=== PATIENT | female | born 1990 | race African-American/Black ===

== ENCOUNTER → 2016-05-26 | Outpatient (CLI) | payer OTHER, SELFPAY ==
[2016-05-26 15:08] LABS: CHLORIDE,CL 106 mmol/L (98-110); SODIUM,NA 136 mmol/L (136-146)
== END ==
LOC: MW.CHOBGYN 14:23
PROVIDERS: ATTEND Nurse Practitioner Women's Health
DX: Z21 Asymptomatic human immunodeficiency virus [HIV] infection status (principal)
CPT/HCPCS: 36415; 80053; 87536

== ENCOUNTER → 2016-05-26 | Outpatient (CLI) | payer OTHER, SELFPAY | LOC: MW.LAB 14:33 | PROVIDERS: ATTEND Internal Medicine Infectious Disease | DX: Z21 Asymptomatic human immunodeficiency virus [HIV] infection status (principal) | CPT/HCPCS: 85025 ==

== ENCOUNTER → 2016-05-31 | Outpatient (CLI) | payer OTHER, SELFPAY | LOC: MW.CHOBGYN 12:34 | PROVIDERS: ATTEND Nurse Practitioner Women's Health | DX: Z21 Asymptomatic human immunodeficiency virus [HIV] infection status (principal) | CPT/HCPCS: 36415; 86361 ==

== ENCOUNTER → 2016-05-31 | Outpatient (CLI) | payer OTHER, SELFPAY | LOC: MW.CHOBGYN 12:32 | PROVIDERS: ATTEND Advanced Practice Midwife | DX: Z34.90 Encounter for supervision of normal pregnancy, unspecified, unspecified trimester (principal) | CPT/HCPCS: 36415; 82950; 85025; 86850 ==

== ENCOUNTER → 2016-06-15 | Outpatient (CLI) | payer OTHER, SELFPAY ==
[2016-06-15 12:50] LABS: CHLORIDE,CL 109 mmol/L (98-110); SODIUM,NA 136 mmol/L (136-146)
== END ==
LOC: MW.CHOBGYN 11:36
PROVIDERS: ATTEND Advanced Practice Midwife
DX: Z21 Asymptomatic human immunodeficiency virus [HIV] infection status (principal)
CPT/HCPCS: 36415; 80053; 85025; 86361; 86480; 86644; 86645; 86777; 86778; 87536

== ENCOUNTER → 2016-07-18 | Outpatient (CLI) | payer OTHER, SELFPAY | END | disposition home or self-care (01) | LOC: MW.CHOBGYN 13:57 | PROVIDERS: ATTEND Advanced Practice Midwife | DX: Z34.90 Encounter for supervision of normal pregnancy, unspecified, unspecified trimester (principal) | CPT/HCPCS: 87081 ==

== ENCOUNTER → 2016-07-19 | Outpatient (CLI) | payer OTHER, SELFPAY ==
[2016-07-19 16:27] LABS: CHLORIDE,CL 109 mmol/L (98-110); SODIUM,NA 137 mmol/L (136-146)
== END | disposition home or self-care (01) ==
LOC: MW.LAB 15:12
PROVIDERS: ATTEND Internal Medicine Infectious Disease
DX: O98.719 Human immunodeficiency virus [HIV] disease complicating pregnancy, unspecified trimester (principal)
CPT/HCPCS: 36415; 80053; 85025; 86361; 87536

== ENCOUNTER 2016-08-04 02:11 | Inpatient (IN) | payer MEDICAID ==
[2016-08-04] MEDS ORDERED: Nalbuphine 10 MG/1 ML Vial IVPUSH PRN (02:35)
[2016-08-04] MEDS ORDERED: Water For Irrigation,Sterile 1,000 ML Container IRR PRN (02:35)
[2016-08-04] MEDS ORDERED: Misoprostol 200 MCG Tab PO PRN (02:35)
[2016-08-04] MEDS ORDERED: Sodium Chloride 0.9% 2.5 ML Syringe FLUSH PRN (02:35)
[2016-08-04] MEDS ORDERED: Lidocaine 1% 50 ML MDV INJECT PRN (02:35)
[2016-08-04] MEDS ORDERED: Butorphanol 1 MG/ML SDV IVPUSH PRN (02:35)
[2016-08-04] MEDS ORDERED: Carboprost Tromethamine 250 MCG/1 ML Amp IM PRN (02:35)
[2016-08-04] MEDS ORDERED: Sodium Chloride 0.9% 10 ML Syringe FLUSH PRN (02:35)
[2016-08-04] MEDS ORDERED: Methylergonovine 0.2 MG/1 ML Amp IM PRN (02:35)
[2016-08-04] MEDS ORDERED: Oxytocin/Lactated Ringers 30 UNIT/500 ML BAG IV SCH (02:45)
[2016-08-04] MEDS ORDERED: Lactated Ringers 1,000 ML IV SCH (02:45)
[2016-08-04] MEDS ORDERED: Benzocaine/Menthol 20%-0.5% Spray 78 GM Cannister TOP PRN (03:45)
[2016-08-04] MEDS ORDERED: Ibuprofen 400 MG Tab PO PRN (03:45)
[2016-08-04] MEDS ORDERED: oxyCODONE 5 MG Tab PO PRN (03:45)
[2016-08-04] MEDS ORDERED: Acetaminophen 500 MG Tab PO PRN ×2 (03:45)
[2016-08-04] MEDS ORDERED: Docusate Sodium 100 MG Cap PO PRN (03:45)
[2016-08-04] MEDS ORDERED: Bisacodyl 10 MG Supp RECTAL PRN (03:45)
[2016-08-04] MEDS ORDERED: Witch Hazel Medicated Pads 40/Jar TOP PRN (03:45)
[2016-08-04] MEDS ORDERED: Lanolin 100% Cream 7 GM Tube TOP PRN (03:45)
--- NOTE | 2016-08-04 03:53 | PCM.LDHP ---
L&D History of Present Illness - General Date of Service: 08/04/16 Admit Problem/Dx: Patient Status Order with Admit Dx/Problem 08/04/16 03:47 Patient Status [ADT] Routine Admission Diagnosis/Problem Admission Diagnosis/Problem 08/04/16 03:47 25yo EDC 08/06/2016 39 4/7wks B+. RI. GBS+, HIV+. Active labor Source of Information: Patient History Limitations: Reports: No limitations - History of Present Illness Improves with: Reports: None Worsens with: Reports: None Associated Symptoms: Reports: N - Related Data Allergies/Adverse Reactions: Allergies Allergy/AdvReac Type Severity Reaction Status Date / Time No Known Allergies Allergy Verified 08/04/16 02:34 H&P Review of Systems - Review of Systems: Review Of Systems: ROS reveals no pertinent complaints other than HPI. General: Reports: no symptoms HEENT: Reports: no symptoms Pulmonary: Reports: No Symptoms Cardiovascular: Reports: no symptoms Gastrointestinal: Reports: No symptoms Genitourinary: Reports: no symptoms Musculoskeletal: Reports: no symptoms Skin: Reports: no symptoms Psychiatric: Reports: no symptoms Neurological: Reports: No Symptoms Hematologic/Lymphatic: Reports: no symptoms Immunologic: Reports: no symptoms L&D Exam - Exam Exam: See Below - Vital Signs Weight: 83 kg - Exam General: alert, oriented, cooperative HEENT: Hearing intact Lungs: Normal respiratory effort Abdomen: Soft Rectal Exam: Deferred Genitourinary: Cervical dilitation Back Exam: full range of motion Extremities: normal inspection Skin: warm, dry, intact Neurological: cranial nerves intact Psychiatric: alert, normal affect, normal mood - Patient Data Lab Results last 24 hrs: Laboratory Results - last 24 hr 08/04/16 08/04/16 Range/Units 02:44 02:44 WBC 10.12 (4.0-11.0) K/uL RBC 4.62 (4.30-5.90) M/uL Hgb 11.7 L (12.0-16.0) g/dL Hct 35.7 L (36.0-46.0) % MCV 77.3 L (80.0-98.0) fL MCH 25.3 L (27.0-32.0) pg MCHC 32.8 (31.0-37.0) g/dL RDW Std Deviation 45.0 (28.0-62.0) fl RDW Coeff of Black 16 H (11.0-15.0) % Plt Count 197 (150-400) K/uL MPV 11.80 (7.40-12.00) fL Nucleated RBC % 0.0 /100WBC Nucleated RBCs # 0 K/uL Blood Type B POSITIVE Antibody Screen NEGATIVE Result Diagrams: 08/04/16 02:44 - Problem List (1) Supervision of normal IUP (intrauterine ) in multigravida SNOMED Code(s): 503818695, 854682994, 011044252 ICD Code: Z34.80 - ENCOUNTER FOR SUPRVSN OF NORMAL , UNSP TRIMESTER Status: Acute Priority: High Current Visit: Yes Qualifiers: Trimester: third trimester Qualified Code(s): Z34.83 - Encounter for supervision of other normal , third trimester (2) HIV disease affecting SNOMED Code(s): 99577155, 909919189 ICD Code: O98.719 - HUMAN IMMUNODEF VIRUS DISEASE COMP , UNSP TRIMESTER Status: Acute Priority: High Current Visit: Yes Qualifiers: Trimester: third trimester Qualified Code(s): O98.713 - Human immunodeficiency virus [HIV] disease complicating , third trimester (3) (normal spontaneous vaginal delivery) SNOMED Code(s): 91179829 ICD Code: O80 - ENCOUNTER FOR FULL-TERM UNCOMPLICATED DELIVERY Status: Acute Priority: Medium Current Visit: Yes Problem List Initiated/Reviewed/Updated: Yes Orders Last 24hrs: Active Orders 24 hr Category Date Time Status Patient Status [ADT] Routine ADT 08/04/16 03:47 Ordered Heart Tones [RC] CONTINUOUS Care 08/04/16 02:35 Inactive Non Stress Test [RC] PER UNIT ROUTINE Care 08/04/16 02:35 Inactive May Shower [RC] ASDIRECTED Care 08/04/16 02:35 Inactive May Shower [RC] ASDIRECTED Care 08/04/16 03:45 Ordered Notify Provider [RC] PRN Care 08/04/16 02:35 Inactive Up ad Kenna [RC] ASDIRECTED Care 08/04/16 02:35 Inactive Up ad Kenna [RC] ASDIRECTED Care 08/04/16 03:45 Ordered Vaginal Exam [RC] PRN Care 08/04/16 02:35 Inactive Vital Signs [RC] PER UNIT ROUTINE Care 08/04/16 02:35 Inactive Vital Signs [RC] PER UNIT ROUTINE Care 08/04/16 03:45 Ordered Regular Diet [DIET] Diet 08/04/16 Breakfast Ordered Acetaminophen [Tylenol Extra Strength] Med 08/04/16 03:45 Ordered 1,000 mg PO Q4H PRN Acetaminophen [Tylenol Extra Strength] Med 08/04/16 03:45 Ordered 500 mg PO Q4H PRN Benzocaine/Menthol [Dermoplast Pain Relief 20%-0.5% Med 08/04/16 03:45 Ordered [place]] 78 gm TOP ASDIRECTED PRN Bisacodyl [Dulcolax] Med 08/04/16 03:45 Ordered 10 mg RECTAL .ONCE PRN Docusate Sodium [Colace] Med 08/04/16 03:45 Ordered 100 mg PO BID PRN Ibuprofen [Motrin] Med 08/04/16 03:45 Ordered 400 mg PO Q4H PRN Ibuprofen [Motrin] Med 08/04/16 03:45 Ordered 800 mg PO Q6H PRN Lanolin [Lansinoh HPA] Med 08/04/16 03:45 Ordered See Dose Instructions TOP ASDIRECTED PRN Witch Sonya [Tucks] Med 08/04/16 03:45 Ordered 1 pad TOP ASDIRECTED PRN oxyCODONE Med 08/04/16 03:45 Ordered 5 mg PO Q2H PRN Assess Lochia [WOMSER] Per Unit Routine Oth 08/04/16 03:45 Ordered Assess Uterine Involution [WOMSER] Per Unit Routine Oth 08/04/16 03:45 Ordered Peripheral IV Discontinue [OM.PC] Routine Oth 08/04/16 03:45 Ordered Resuscitation Status Routine Resus Stat 08/04/16 03:45 Ordered Medication Orders Acetaminophen (Tylenol Extra Strength) 500 mg PO Q4H PRN PRN Reason: Pain Acetaminophen (Tylenol Extra Strength) 1,000 mg PO Q4H PRN PRN Reason: Pain Benzocaine/Menthol (Dermoplast Pain Relief 20%-0.5% [place]) 78 gm TOP ASDIRECTED PRN PRN Reason: Perineal Comfort Measure Bisacodyl (Dulcolax) 10 mg RECTAL .ONCE PRN PRN Reason: Constipation Docusate Sodium (Colace) 100 mg PO BID PRN PRN Reason: Constipation Emollient Ointment (Lansinoh Hpa) 0 gm TOP ASDIRECTED PRN PRN Reason: Sore Nipples Ibuprofen (Motrin) 400 mg PO Q4H PRN PRN Reason: Pain Ibuprofen (Motrin) 800 mg PO Q6H PRN PRN Reason: Pain Oxycodone HCl (Oxycodone) 5 mg PO Q2H PRN PRN Reason: Pain Witch Sonya (Tucks) 1 pad TOP ASDIRECTED PRN PRN Reason: comfort care Assessment/Plan Comment:: Labor/DeliveryL A: arrives in active labor 25yo EDC 08/06/2016 39 4/7wks. complicated by HIV. Delivered , Healthy girl, APGARS 9/9, Wt: 8lbs,1st lac with repair. EBL 150cc. Mother and left in stable condition for recovery. P: She was admitted to L&D and attempted to get epidrual but dilated to fast. Routine pp plan of care.
--- NOTE | 2016-08-04 04:15 | PCM.DEL ---
L & D Note - General Info Date of Service: 08/04/16 Mother's Due Date: 08/06/16 - Delivery Note Labor: spontaneous Delivery Outcome: Livebirth Infant Delivery Method: Spontaneous Vaginal Delivery Infant Delivery Mode: Spontaneous Presentation: Vertex Nuchal cord: present Anesthesia Type: None Amniotic Fluid Description: Clear Episiotomy Type: None Laceration: 1st degree Suture type: vicryl Suture size: 3-0 Placenta: intact, spontaneous Score 1 min: 9 Score 5 min: 9 Second Stage Interventions: Reports: Pushing Effectively Delivery Comments (Free Text/Narrative):: of viable girl over intact perineum. Head delivered, nuchle x1 loose, reduced over head, shoulders and body followed easily. to mothers abdomen with RN at for evaluation. Delayed cord clamping, pitocin to IVF, Cord clamped and cut. Cord blood collected. Placenta delivered grossly intact. Inspection noted 1st degree lac that was repaired in the usual manor. Bimanual noted normal. EBL 150cc, APGARS 9/9, Wt: 8pounds even. Counts correct. All discussion with the mother was through a bottom stop attacher (Qoof) - General Info Admission Dx/Problem (Free Text): Patient Status Order with Admit Dx/Problem 08/04/16 03:47 Patient Status [ADT] Routine Admission Diagnosis/Problem Admission Diagnosis/Problem 08/04/16 03:47 25yo EDC 08/06/2016 39 4/7wks B+. RI. GBS+, HIV+. Active labor Functional Status: Reports: pain controlled, tolerating diet - Review of Systems General: Reports: No Symptoms HEENT: Reports: no symptoms Pulmonary: Reports: no symptoms Cardiovascular: Reports: No Symptoms Gastrointestinal: Reports: No symptoms Genitourinary: Reports: no symptoms Musculoskeletal: Reports: no symptoms Skin: Reports: no symptoms Neurological: Reports: No Symptoms Psychiatric: Reports: no symptoms - Patient Data Weight - most recent: 83 kg Lab Results last 24 hrs: Laboratory Results - last 24 hr 08/04/16 08/04/16 Range/Units 02:44 02:44 WBC 10.12 (4.0-11.0) K/uL RBC 4.62 (4.30-5.90) M/uL Hgb 11.7 L (12.0-16.0) g/dL Hct 35.7 L (36.0-46.0) % MCV 77.3 L (80.0-98.0) fL MCH 25.3 L (27.0-32.0) pg MCHC 32.8 (31.0-37.0) g/dL RDW Std Deviation 45.0 (28.0-62.0) fl RDW Coeff of Black 16 H (11.0-15.0) % Plt Count 197 (150-400) K/uL MPV 11.80 (7.40-12.00) fL Nucleated RBC % 0.0 /100WBC Nucleated RBCs # 0 K/uL Blood Type B POSITIVE Antibody Screen NEGATIVE Med Orders - Current: Current Medications Acetaminophen (Tylenol Extra Strength) 500 mg PO Q4H PRN PRN Reason: Pain Acetaminophen (Tylenol Extra Strength) 1,000 mg PO Q4H PRN PRN Reason: Pain Benzocaine/Menthol (Dermoplast Pain Relief 20%-0.5% [place]) 78 gm TOP ASDIRECTED PRN PRN Reason: Perineal Comfort Measure Bisacodyl (Dulcolax) 10 mg RECTAL .ONCE PRN PRN Reason: Constipation Docusate Sodium (Colace) 100 mg PO BID PRN PRN Reason: Constipation Emollient Ointment (Lansinoh Hpa) 0 gm TOP ASDIRECTED PRN PRN Reason: Sore Nipples Ibuprofen (Motrin) 400 mg PO Q4H PRN PRN Reason: Pain Ibuprofen (Motrin) 800 mg PO Q6H PRN PRN Reason: Pain Oxycodone HCl (Oxycodone) 5 mg PO Q2H PRN PRN Reason: Pain Witch Sonya (Tucks) 1 pad TOP ASDIRECTED PRN PRN Reason: comfort care Discontinued Medications Butorphanol Tartrate (Stadol) 1 mg IVPUSH Q1H PRN PRN Reason: Pain Carboprost Tromethamine (Hemabate Ds) 250 mcg IM ASDIRECTED PRN PRN Reason: Post Hemorrhage Lactated Ringer's (Ringers, Lactated) 1,000 mls @ 150 mls/hr IV ASDIRECTED RISHI Last Admin: 08/04/16 03:10 Dose: 150 mls/hr Oxytocin/Lactated Ringer's (Pitocin In Lr 30 Units/500 Ml) 30 unit in 500 mls @ 999 mls/hr IV TITRATE RISHI; 999 MUNITS/MIN PRN Reason: Protocol Stop: 08/04/16 03:16 Last Admin: 08/04/16 03:15 Dose: 999 munits/min, 999 mls/hr Lidocaine HCl (Xylocaine 1%) 50 ml INJECT .ONCE PRN PRN Reason: Laceration repair Last Admin: 08/04/16 03:23 Dose: 50 ml Methylergonovine Maleate (Methergine) 0.2 mg IM ASDIRECTED PRN PRN Reason: Post Hemorrhage Misoprostol (Cytotec) 200 mcg PO .ONCE PRN PRN Reason: Post Hemorrhage Nalbuphine HCl (Nubain) 10 mg IVPUSH Q1H PRN PRN Reason: Pain (severe 7-10) Stop: 08/04/16 04:36 Sodium Chloride (Saline Flush) 10 ml FLUSH ASDIRECTED PRN PRN Reason: Keep Vein Open Sodium Chloride (Saline Flush) 2.5 ml FLUSH ASDIRECTED PRN PRN Reason: Keep Vein Open Sterile Water (Sterile Water For Irrigation) 1,000 ml IRR ASDIRECTED PRN PRN Reason: delivery - Exam General: alert, oriented, cooperative, no acute distress Lungs: Normal respiratory effort Abdomen: soft, no tenderness, no distension (Female) Exam: Vaginal bleeding Back Exam: full range of motion Extremities: no edema Skin: warm Wound/Incisions: healing well Neurological: no new focal deficit Psy/Mental Status: alert, normal affect, normal mood - Problem List & Annotations (1) Supervision of normal IUP (intrauterine ) in multigravida SNOMED Code(s): 163962420, 251281983, 878761453 Code(s): Z34.80 - ENCOUNTER FOR SUPRVSN OF NORMAL , UNSP TRIMESTER Status: Acute Priority: High Current Visit: Yes Qualifiers: Trimester: third trimester Qualified Code(s): Z34.83 - Encounter for supervision of other normal , third trimester (2) HIV disease affecting SNOMED Code(s): 02183767, 868865181 Code(s): O98.719 - HUMAN IMMUNODEF VIRUS DISEASE COMP , UNSP TRIMESTER Status: Acute Priority: High Current Visit: Yes Qualifiers: Trimester: third trimester Qualified Code(s): O98.713 - Human immunodeficiency virus [HIV] disease complicating , third trimester (3) (normal spontaneous vaginal delivery) SNOMED Code(s): 74316779 Code(s): O80 - ENCOUNTER FOR FULL-TERM UNCOMPLICATED DELIVERY Status: Acute Priority: Medium Current Visit: Yes - Problem List Review Problem List Initiated/Reviewed/Updated: Yes - My Orders Last 24 Hours: My Active Orders 08/04/16 02:35 Heart Tones [RC] CONTINUOUS Non Stress Test [RC] PER UNIT ROUTINE May Shower [RC] ASDIRECTED Notify Provider [RC] PRN Up ad Kenna [RC] ASDIRECTED Vaginal Exam [RC] PRN Vital Signs [RC] PER UNIT ROUTINE 08/04/16 03:45 May Shower [RC] ASDIRECTED Up ad Kenna [RC] ASDIRECTED Vital Signs [RC] PER UNIT ROUTINE Acetaminophen [Tylenol Extra Strength] 1,000 mg PO Q4H PRN Acetaminophen [Tylenol Extra Strength] 500 mg PO Q4H PRN Benzocaine/Menthol [Dermoplast Pain Relief 20%-0.5% [place]] 78 gm TOP ASDIRECTED PRN Bisacodyl [Dulcolax] 10 mg RECTAL .ONCE PRN Docusate Sodium [Colace] 100 mg PO BID PRN Ibuprofen [Motrin] 400 mg PO Q4H PRN Ibuprofen [Motrin] 800 mg PO Q6H PRN Lanolin [Lansinoh HPA] See Dose Instructions TOP ASDIRECTED PRN Witch Sonya [Tucks] 1 pad TOP ASDIRECTED PRN oxyCODONE 5 mg PO Q2H PRN Assess Lochia [WOMSER] Per Unit Routine Assess Uterine Involution [WOMSER] Per Unit Routine Peripheral IV Discontinue [OM.PC] Routine Resuscitation Status Routine 08/04/16 03:47 Patient Status [ADT] Routine 08/04/16 Breakfast Regular Diet [DIET] - Plan Plan:: Labor/DeliveryL A: arrives in active labor 25yo EDC 08/06/2016 39 4/7wks. complicated by HIV. Delivered , Healthy girl, APGARS 9/9, Wt: 8lbs,1st lac with repair. EBL 150cc. Mother and left in stable condition for recovery. P: She was admitted to L&D and attempted to get epidrual but dilated to fast. Routine pp plan of care.
[2016-08-04] MEDS: Ibuprofen 800 MG Tab PO PRN (12:58)
--- NOTE | 2016-08-05 09:42 | PCM.DCSUM1 ---
Discharge Summary - Hospital Course Free Text/Narrative:: Discharge home with . Follow up 6 weeks or sooner if needed. - Discharge Data Discharge Date: 08/05/16 Discharge Disposition: Home, Self-Care 01 Condition: Good - Discharge Diagnosis/Problem(s) (1) Supervision of normal IUP (intrauterine ) in multigravida SNOMED Code(s): 599712077, 877223706, 181281712 ICD Code: Z34.80 - ENCOUNTER FOR SUPRVSN OF NORMAL , UNSP TRIMESTER Status: Acute Priority: High Current Visit: Yes Qualifiers: Trimester: third trimester Qualified Code(s): Z34.83 - Encounter for supervision of other normal , third trimester (2) HIV disease affecting SNOMED Code(s): 21615027, 366182989 ICD Code: O98.719 - HUMAN IMMUNODEF VIRUS DISEASE COMP , UNSP TRIMESTER Status: Acute Priority: High Current Visit: Yes Qualifiers: Trimester: third trimester Qualified Code(s): O98.713 - Human immunodeficiency virus [HIV] disease complicating , third trimester (3) (normal spontaneous vaginal delivery) SNOMED Code(s): 35915913 ICD Code: O80 - ENCOUNTER FOR FULL-TERM UNCOMPLICATED DELIVERY Status: Acute Priority: Medium Current Visit: Yes - Patient Instructions Diet: Usual Diet as Tolerated Activity: As Tolerated, Rest and Relax Today Driving: Do Not Drive Showering/Bathing: May Shower Notify Provider of: Fever, Increased Pain, Swelling and Redness, Nausea and/or Vomiting Other/Special Instructions: Discharge home with . Follow up 6 weeks or sooner if needed. - Discharge Plan Home Medications: Home Meds Acetaminophen [Tylenol Extra Strength] 1,000 mg PO Q4H PRN #0 tablet 08/05/16 [ Rx] Elvitegr/Cobicist/Emtric/Tenof [Stribild Tablet] 1 each PO ASDIRECTED #1 tablet 08/05/16 [Rx] Ibuprofen [IJD: Ibuprofen] 800 mg PO Q6H PRN #0 tablet 08/05/16 [Rx] Referrals: [facility] [Outside] Ginger Benitez CNM [Mid-] - 09/08/16 1:30 pm (6 wks check) - General Info Date of Service: 08/05/16 Functional Status: Reports: pain controlled, tolerating diet, ambulating, urinating - Review of Systems General: Reports: No Symptoms HEENT: Reports: no symptoms Pulmonary: Reports: no symptoms Cardiovascular: Reports: No Symptoms Gastrointestinal: Reports: No symptoms Genitourinary: Reports: no symptoms Musculoskeletal: Reports: no symptoms Skin: Reports: no symptoms Neurological: Reports: No Symptoms Psychiatric: Reports: no symptoms - Patient Data Vitals - Most Recent: Last Vital Signs Temp 36.3 C 08/05/16 04:00 Pulse 67 08/05/16 04:00 Resp 16 08/05/16 04:00 BP 103/61 08/05/16 04:00 Pulse Ox 99 08/05/16 04:00 Weight - Most Recent: 83 kg Med Orders - Current: Current Medications Acetaminophen (Tylenol Extra Strength) 500 mg PO Q4H PRN PRN Reason: Pain Acetaminophen (Tylenol Extra Strength) 1,000 mg PO Q4H PRN PRN Reason: Pain Benzocaine/Menthol (Dermoplast Pain Relief 20%-0.5% [place]) 78 gm TOP ASDIRECTED PRN PRN Reason: Perineal Comfort Measure Bisacodyl (Dulcolax) 10 mg RECTAL .ONCE PRN PRN Reason: Constipation Docusate Sodium (Colace) 100 mg PO BID PRN PRN Reason: Constipation Emollient Ointment (Lansinoh Hpa) 0 gm TOP ASDIRECTED PRN PRN Reason: Sore Nipples Ibuprofen (Motrin) 400 mg PO Q4H PRN PRN Reason: Pain Ibuprofen (Motrin) 800 mg PO Q6H PRN PRN Reason: Pain Last Admin: 08/04/16 12:58 Dose: 800 mg Oxycodone HCl (Oxycodone) 5 mg PO Q2H PRN PRN Reason: Pain Witch Sonya (Tucks) 1 pad TOP ASDIRECTED PRN PRN Reason: comfort care Discontinued Medications Butorphanol Tartrate (Stadol) 1 mg IVPUSH Q1H PRN PRN Reason: Pain Carboprost Tromethamine (Hemabate Ds) 250 mcg IM ASDIRECTED PRN PRN Reason: Post Hemorrhage Lactated Ringer's (Ringers, Lactated) 1,000 mls @ 150 mls/hr IV ASDIRECTED RISHI Last Admin: 08/04/16 03:10 Dose: 150 mls/hr Oxytocin/Lactated Ringer's (Pitocin In Lr 30 Units/500 Ml) 30 unit in 500 mls @ 999 mls/hr IV TITRATE RISHI; 999 MUNITS/MIN PRN Reason: Protocol Stop: 08/04/16 03:16 Last Admin: 08/04/16 03:15 Dose: 999 munits/min, 999 mls/hr Lidocaine HCl (Xylocaine 1%) 50 ml INJECT .ONCE PRN PRN Reason: Laceration repair Last Admin: 08/04/16 03:23 Dose: 50 ml Methylergonovine Maleate (Methergine) 0.2 mg IM ASDIRECTED PRN PRN Reason: Post Hemorrhage Misoprostol (Cytotec) 200 mcg PO .ONCE PRN PRN Reason: Post Hemorrhage Nalbuphine HCl (Nubain) 10 mg IVPUSH Q1H PRN PRN Reason: Pain (severe 7-10) Stop: 08/04/16 04:36 Sodium Chloride (Saline Flush) 10 ml FLUSH ASDIRECTED PRN PRN Reason: Keep Vein Open Sodium Chloride (Saline Flush) 2.5 ml FLUSH ASDIRECTED PRN PRN Reason: Keep Vein Open Sterile Water (Sterile Water For Irrigation) 1,000 ml IRR ASDIRECTED PRN PRN Reason: delivery - Exam General: Reports: alert, oriented, cooperative, no acute distress Lungs: Reports: Normal respiratory effort Cardiovascular: Reports: Regular Rate, Regular Rhythm Abdomen: Reports: soft, no tenderness, no distension (Female) Exam: Vaginal Bleeding Rectal (Female) Exam: Deferred Back Exam: Reports: Full Range of Motion Extremities: Reports: no edema Skin: Reports: warm, dry, intact Wound/Incisions: Reports: healing well Neurological: Reports: no new focal deficit Psy/Mental Status: Reports: alert *Q Meaningful Use (DIS) - VTE *Q VTE Criteria *Q: - Stroke *Q Stroke Criteria *Q: - AMI *Q AMI Criteria *Q:
[2016-08-05 21:19] VITALS: BP 121/58
[2016-08-05] MEDS: Ibuprofen 800 MG Tab PO PRN (21:20)
== END 2016-08-05 21:25 | disposition home or self-care (01) | DRG 774 ==
LOC: MW.OBCHECK 02:11 → MW.OB 02:12 → MW.OBCHECK 02:35 → OBSVTOIN 03:15 → MW.MS 16:55
PROVIDERS: ADMIT Obstetrics & Gynecology; ATTEND Obstetrics & Gynecology
PROC: 10E0XZZ Delivery of Products of Conception, External Approach (ICD-10-PCS; principal; 2016-08-04)
PROC: 0HQ9XZZ Repair Perineum Skin, External Approach (ICD-10-PCS; 2016-08-04)
DX: O70.0 First degree perineal laceration during delivery (principal); O98.72 Human immunodeficiency virus [HIV] disease complicating childbirth; Z3A.39 39 weeks gestation of pregnancy; Z37.0 Single live birth
CPT/HCPCS: 36415; 59025; 85027; 86850; 86900; 86901; A9270-GY; J7120